=== PATIENT | male | born 1980 | race Caucasian/White ===

== ENCOUNTER → 2017-09-01 14:48 | Outpatient (CLI) | payer BC, SELFPAY | PROVIDERS: Visit Provider Nurse Practitioner Family | DX: R50.9 Fever, unspecified (principal) | CPT/HCPCS: 87275; 87276 ==

== ENCOUNTER → 2021-05-25 07:44 | Outpatient (CLI) | payer BC, SELFPAY ==
[2021-05-25 08:23] LABS: Anion Gap 8.8 mEq/L (5-15); Blood Urea Nitrogen 16 mg/dl (9-20); Calcium 9.3 mg/dl (8.4-10.2); Carbon Dioxide 34 mmol/L (22.0-30.0); Chloride 102 mmol/L (98-107); Chol/HDL Ratio 3.6 (1-3.5); Cholesterol 176 mg/dl (140-200); Estimated Glomerular Filt Rate 67 ml/min (>60); GFR (African American) 81 ML/MIN (>60); Glucose 95 mg/dl (74-100); HDL Cholesterol 49 mg/dl (40-60); Potassium 4.8 mmoL/L (3.5-5.1); Sodium 140 mmol/L (136-145); Triglycerides 53 mg/dl (30-150); VLDL Cholesterol 11 mg/dL (0-40)
[2021-05-25 08:34] LABS: Direct LDL Cholesterol 111.21 mg/dL (100-129)
== END ==
PROVIDERS: Visit Provider Family Medicine
DX: Z13.1 Encounter for screening for diabetes mellitus (principal); Z13.220 Encounter for screening for lipoid disorders
CPT/HCPCS: 36415; 80048; 80061

== ENCOUNTER → 2021-07-13 09:10 | Outpatient (CLI) | payer BC, SELFPAY ==
[2021-07-13 12:38] LABS: Basophils % 0.6 % (0.1-2.0); Eosinophils # 0.1 K/mm3 (0.0-0.4); Eosinophils % 1.1 % (0.1-12.0); Hematocrit 49.2 % (42.0-52.0); Hemoglobin 15.9 g/dL (14.1-18.0); Lymphocytes # 2.6 K/mm3 (0.7-4.5); Mean Corpuscular HGB Conc 32.2 g/dL (31.8-35.4); Mean Corpuscular Hemoglobin 32.8 pg (27.0-31.2); Mean Corpuscular Volume 101.6 fl (80-94); Mean Platelet Volume 9.1 fl (7.4-10.4); Monocytes # 0.4 K/mm3 (0.1-1.0); Monocytes % 6.5 % (1.7-9.3); Neutrophils # 2.8 K/mm3 (1.8-7.8); Neutrophils % 47.8 % (37.0-80.0); Platelet Count 201 K/mm3 (142-424); Red Blood Count 4.84 M/mm3 (4.60-6.20); Red Cell Distribution Width 12.9 % (11.5-17.5); White Blood Count 5.8 K/mm3 (4.8-10.8)
[2021-07-13 13:53] LABS: Anion Gap 10.9 mEq/L (5-15); Blood Urea Nitrogen 13 mg/dl (9-20); Calcium 9.4 mg/dl (8.4-10.2); Carbon Dioxide 31 mmol/L (22.0-30.0); Chloride 100 mmol/L (98-107); Estimated Glomerular Filt Rate 74 ml/min (>60); GFR (African American) 90 ML/MIN (>60); Glucose 65 mg/dl (74-100); Potassium 3.9 mmoL/L (3.5-5.1); Sodium 138 mmol/L (136-145)
== END ==
PROVIDERS: Visit Provider Surgery
DX: Z01.812 Encounter for preprocedural laboratory examination (principal); Z11.52 Encounter for screening for COVID-19; D17.9 Benign lipomatous neoplasm, unspecified
CPT/HCPCS: 80048; 85025; C9803; U0003; U0005

== ENCOUNTER 2021-07-16 06:12 | Day surgery (SDC) | payer BC, SELFPAY ==
[2021-07-15 09:19] VITALS: BMI 22.4
[2021-07-16] VITALS (11 sets, daily range): BP systolic 108–133; BP diastolic 61–81; PULSE 65–86; RESP 10–18; TEMP 36.5–36.7; O2SAT 94–100
--- NOTE | 2021-07-16 06:56 | P.HP_ITS ---
HPI HPI: Patient is a pleasant 41-year-old male referred by [facility] for essentially abdominal wall mass. He has had a swelling in the right lower lateral abdominal area for about 2 years. It is asymptomatic to him. It is somewhat concerning. [facility] History I have reviewed the patient's past medical history: Yes Medical History: Denies:: Cancer, Diabetes Mellitus Type 1, Diabetes Mellitus Type 2, Internal Pacemaker, MRSA, Seizures *Have you ever received a pneumonia vaccine?: No *Have you received a flu vaccine this season?: No Other Medical History: Denies: Blood Transfusion Reaction Laterality Cases: Bilateral: Tonsillectomy Other Surgeries: No: Pacemaker Amputation: No Fractures: No - *Social History Last grade of school completed: Advanced degree Smoking Status: Never smoker Alcohol Intake: never Alcohol Intake Frequency:: holidays/special occasions only *Occupational Status:: employed Housing: house Household Members: spouse, family *Travel in the last 8 weeks: Inside the [facility] Family Hx:: Diabetes Review of Systems - Review of Systems Review of systems:: pertinent systems reviewed and negative unless documented below Meds Home Medications Medication Instructions Recorded Confirmed Type No Known Home Medications 07/15/21 07/15/21 History Allergies Allergy/AdvReac Type Severity Reaction Status Date / Time CODEINE Allergy Unknown Uncoded 04/29/21 14:32 SULFA (SULFONAMIDE) Allergy Unknown Uncoded 04/29/21 14:32 Exam Vital signs and Labs for Last 24 Hours: Temp Pulse Resp BP Pulse Ox 98.1 F 86 16 122/74 100 07/16/21 06:35 07/16/21 06:35 07/16/21 06:35 07/16/21 06:35 07/16/21 06:35 I & O for Last 24 hours: Intake & Output 07/13/21 07/14/21 07/15/21 07/16/21 11:59 11:59 11:59 11:59 Weight 175 lb - Constitutional no acute distress - *Routine HEENT Exam Head: Present: normocephalic Eye: Present: EOMI, PERRL ENT: Present: mucous membranes moist - *Routine Neck Exam Present: supple. Absent: lymphadenopathy - *Routine Respiratory Exam Present: CTA bilaterally - *Routine Cardiovascular Exam Present: RRR - *Routine Abdominal Exam Present: soft, normoactive bowel sounds. Absent: tenderness Comments: Near the right iliac crest area there is an obvious swelling subcutaneous spongy mass consistent with about a 6 cm lipoma - *Routine Rectal Exam Rectal:: deferred - *Routine Genitalia Exam Genitalia:: deferred - *Routine Extremities Exam Absent: cyanosis, clubbing, edema - *Routine Skin Exam Present: warm. Absent: rash - *Routine Neurological Exam Present: alert, oriented X3 Assessment and Plan - Assessment and plan all Dx Assessment and Plan for all problems:: Plan excision of lipoma
--- NOTE | 2021-07-16 07:30 | HMH.ANESCL ---
[facility] Anesthesia Checklist - Patient Identification Patient Identification: Arm Band - Structural Data Admitted From: Home Planned Operative Procedure/s: Excision lipoma Consent for Planned Operative Procedure(s) Verified: Yes - NPO Status Verified Time NPO: 00:00 - Additional verifications Anesthesia Reactions: No Hx Blood Transfusions: No Blood Transfusion Reaction: No - Airway Assessment C-Spine Mobility Assessed: Yes TMJ Mobility Assessed: Yes Dentition: Good Dentition - Neurological Assessment Level of Consciousness: Awake Hx Seizures: No Numbness or tingling in extremities: No - Anesthesia Plan Anesthesia Risk discussed: Yes Anesthesia Plan: Verified ASA Class: II Anesthesia Type: General [facility] History I have reviewed the patient's past medical history: Yes Medical History: Reports:: Heart Murmur Denies:: Cancer, Diabetes Mellitus Type 1, Diabetes Mellitus Type 2, Internal Pacemaker, MRSA, Seizures *Have you ever received a pneumonia vaccine?: No *Have you received a flu vaccine this season?: No Other Medical History: Denies: Blood Transfusion Reaction Anesthesia experience/problems:: None Laterality Cases: Bilateral: Tonsillectomy Other Surgeries: No: Pacemaker Amputation: No Fractures: No - *Social History Last grade of school completed: Advanced degree Smoking Status: Never smoker Alcohol Intake: never Alcohol Intake Frequency:: holidays/special occasions only Substance Use Type: denies use *Occupational Status:: employed Housing: house Household Members: spouse, family *Travel in the last 8 weeks: Inside the [facility] Family Hx:: Diabetes
--- NOTE | 2021-07-16 07:45 | P.OP_ITS ---
Date of procedure: 07/16/21 Pre-op Diagnosis:: Lipoma Post-op Diagnosis:: Same Procedure performed:: Of lipoma, right lower quadrant, excisional length 6.0 cm (intermediate complexity closure) Surgeon:: Nehemiah Vazquez MD IT INFRASTRUCTURE MANAGER:: Fabiola Duncan Anesthesia: LMA Estimated blood loss (mL): 10 Clinical Note:: Patient is a pleasant 41-year-old male referred by [facility] for essentially abdominal wall mass. He has had a swelling in the right lower lateral abdominal area for about 2 years. Over the past couple of months it has become somewhat more symptomatic to him. It is somewhat concerning to him. Operative findings:: Consistent with subcutaneous lipoma, well-circumscribed Operative note:: Patient was taken the operating room. He was positioned supine position. General anesthesia was induced via LMA. The area was prepped and draped. Lesion was marked with a skin marker for planned transverse incision. Skin incision was made. Dissection was carried down through dermis and superficial subcutaneous tissues. Well-circumscribed encapsulated lipoma was encountered. It was dissected free from surrounding tissues using electrocautery. It was sent off of the specimen. Hemostasis was achieved. Local anesthetic was infiltrated. Subdermal subcutaneous tissues were reapproximated with interrupted 2-0 Vicryl. Skin was closed with 4-0 Monocryl in a subcuticular fashion. Steri-Strips and dressings were applied. Condition: stable Disposition: PACU Specimens:: Lipoma Complications:: None immediately apparent
--- NOTE | 2021-07-16 07:52 | P.PN_ITS ---
[facility] Anesthesia Record Part I Intake, IV Amount: 300 Estimated blood loss (mL): 5 Urine output (mL): 0 Blood Pressure: 110/70 SaO2: 94 Pulse Rate: 78 Respiratory Rate: 10 Temperature: 97.7 F Patient is:: Drowsy Stable to PACU at:: 07:50
--- NOTE | 2021-07-16 10:36 | HMH.ANESII ---
[facility] Anesthesia Record Part II Discharge Time: 08:30 Destination: [facility] (OP Surgery) PACU nurse assessment reviewed?: Yes Patient Condition:: Good Anesthesia Complications:: None Swallowing reflex intact?: Yes Cyanosis?: No Blood Pressure: 116/71 Pulse Rate: 74 Temperature: 97.7 F Mental Status: Alert & Oriented Pain level:: 0 Nausea and/or vomitting:: None Intake, IV Amount: 0
== END 2021-07-16 09:40 | disposition home or self-care (01) ==
LOC: OR 06:14
PROVIDERS: PCP Family Medicine; Visit Provider Surgery
PROC: (CPT 11406; principal; 2021-07-16 07:30)
DX: D17.1 Benign lipomatous neoplasm of skin and subcutaneous tissue of trunk; R01.1 Cardiac murmur, unspecified; Z83.3 Family history of diabetes mellitus; Z88.2 Allergy status to sulfonamides; Z88.6 Allergy status to analgesic agent
CPT/HCPCS: 11406; 12031; 96374